=== PATIENT | female | born 1995 | race Caucasian/White ===

== ENCOUNTER 2017-04-23 10:09 | Emergency (ER) | payer MEDICAID, SELFPAY ==
[2017-04-23 10:10] VITALS: BP 130/89; PULSE 103; RESP 14; TEMP 36.8; O2SAT 100; BMI 33.6
[2017-04-23 22:19] LABS: Microscopic, Urine URINE MICROSCOPIC (MICROSCOPIC)
[2017-04-23 23:33] LABS: Appearance,Urine TURBID (Clear); Bilirubin,Urine Negative (Negative); Blood, Urine 3+ (Negative); Color,Urine AMBER (Yellow); Glucose,Urine (UA) Negative (Negative); Ketones,Urine TRACE (Negative); Leukocyte Esterase,Urine TRACE (Negative); Nitrate,Urine POSITIVE (Negative); PH,Urine 6.5 (5.0-8.5); Protein,Urine 2+ (Negative); Specific Gravity, Urine >= 1.030 (1.005-1.030)
[2017-04-23 23:41] LABS: Amorphous Sediment,Urine 4+ /lpf; RBC,Urine TNTC #/hpf (0-3)
[2017-04-24 00:06] LABS: Alanine Aminotransferase 17 U/L (12-78); Albumin/Globulin Ratio 1.2 (1.1-1.8); Alkaline Phosphatase 66 U/L (46-116); Anion Gap 9.9 mEq/L (5-15); Aspartate Amino Transferase 9 U/L (15-37); Bilirubin,Total 0.6 mg/dL (0.2-1.0); Blood Urea Nitrogen 11 mg/dL (7-18); Carbon Dioxide 30 mmol/L (21.0-32.0); Chloride 102 mmol/L (98-107); Creatinine Clearance Estimated 172 mL/min (0-300); Estimated Glomerular Filt Rate > 60 ml/min (>60); GFR (African American) > 60 ML/MIN (>60); Globulin 3.3 gm/dl (1.3-3.2); Glucose 98 mg/dL (74-106); Potassium 3.9 mmoL/L (3.5-5.1); Sodium 138 mmol/L (136-145); Total Protein,Serum 7.3 gm/dL (6.4-8.2)
[2017-04-24 00:07] LABS: HCG,Quantitative 578 mIU/mL
[2017-04-24 00:58] LABS: Basophils % 0.2 % (0.1-2.0); Eosinophils % 0.6 % (0.1-12.0); Hematocrit 39.9 % (37.0-47.0); Hemoglobin 13.4 g/dL (12.2-16.2); Mean Corpuscular HGB Conc 33.6 g/dL (31.8-35.4); Mean Corpuscular Volume 92.3 fl (81-99); Mean Platelet Volume 8.7 fl (7.4-10.4); Monocytes % 5.4 % (1.7-9.3); Neutrophils % 81.8 % (37.0-80.0); Platelet Count 270 K/mm3 (142-424); Red Blood Count 4.32 M/mm3 (4.20-5.40); Red Cell Distribution Width 12.3 % (11.5-17.5); White Blood Count 13.1 K/mm3 (4.8-10.8)
[2017-04-24 00:59] LABS: Eosinophils # 0.1 K/mm3 (0.0-0.4); Lymphocytes # 1.6 K/mm3 (0.7-4.5); Monocytes # 0.7 K/mm3 (0.1-1.0); Neutrophils # 10.7 K/mm3 (1.8-7.8)
== END 2017-04-23 10:30 | disposition home or self-care (01) ==
PROVIDERS: Emergency Provider Physician Assistant; Family Provider Family Medicine; PCP Family Medicine
DX: N39.0 Urinary tract infection, site not specified (principal)
CPT/HCPCS: 80053; 81001; 84702; 85025; 87086; 99202

== ENCOUNTER → 2017-09-13 13:23 | Outpatient (REF) | payer MEDICAID, SELFPAY ==
[2017-09-15 19:23] LABS: Neisseria gonorrhoeae, NAA Negative (Negative)
== END ==
LOC: LAB 13:23
PROVIDERS: Visit Provider Physician Assistant
DX: R10.9 Unspecified abdominal pain (principal)
CPT/HCPCS: 87086; 87210; 87491; 87591

== ENCOUNTER → 2017-09-14 15:54 | Outpatient (REF) | payer MEDICAID, SELFPAY ==
[2017-09-14 19:42] LABS: HCG,Quantitative 3 mIU/mL
== END ==
LOC: LAB 15:54
PROVIDERS: Visit Provider Physician Assistant
DX: R10.9 Unspecified abdominal pain (principal)
CPT/HCPCS: 84702

== ENCOUNTER → 2017-12-06 17:41 | Outpatient (REF) | payer MEDICAID, SELFPAY ==
[2017-12-06 20:40] LABS: HCG,Quantitative 0 mIU/mL
== END ==
LOC: LAB 17:41
PROVIDERS: Visit Provider Physician Assistant
DX: N91.2 Amenorrhea, unspecified (principal)
CPT/HCPCS: 84702

== ENCOUNTER → 2018-03-13 14:23 | Outpatient (CLI) | payer MEDICAID, SELFPAY | PROVIDERS: Visit Provider Nurse Practitioner Family | DX: R10.32 Left lower quadrant pain (principal) | CPT/HCPCS: 87086 ==

== ENCOUNTER → 2018-03-13 14:45 | Outpatient (CLI) | payer MEDICAID, SELFPAY ==
--- NOTE | 2018-03-13 14:47 | US_ITS ---
US transvaginal HISTORY: ITS.REASON: US T/V- F/U on left ovarian cyst ORDERING PHYSICIAN: Lauren Rodriguez MD PATIENT AGE: 22 years Comparison: 09/15/2017 Last menstrual period: 02/26/2018 FINDINGS: The uterus is 7.6 x 3.7 x 5.7 cm with a combined endometrial thickness of 7 mm. No uterine mass or abnormal echogenicity apparent. The left ovary is 3.5 x 2.7 cm containing small follicles. Blood flow is present. The right ovary is 3.5 x 2.6 cm cm and contains small follicles. Blood flow is present. No adnexal mass evident. Minimal amount of fluid is present in the cul-de-sac. IMPRESSION: Essentially unremarkable pelvic ultrasound Previously noted left ovarian cyst has resolved
== END ==
PROVIDERS: PCP Physician Assistant; Visit Provider Obstetrics & Gynecology
DX: N83.202 Unspecified ovarian cyst, left side (principal)
CPT/HCPCS: 76830

== ENCOUNTER → 2018-03-16 14:25 | Outpatient (CLI) | payer MEDICAID, SELFPAY ==
[2018-03-16 16:15] LABS: Thyroid Stimulating Hormone 0.96 uIU/ml (0.358-3.740)
[2018-03-19 10:34] LABS: Progesterone 0.2 ng/mL (.)
== END ==
PROVIDERS: PCP Physician Assistant; Visit Provider Obstetrics & Gynecology
DX: N97.0 Female infertility associated with anovulation (principal)
CPT/HCPCS: 36415; 84144; 84443

== ENCOUNTER → 2018-08-20 08:44 | Outpatient (CLI) | payer MEDICAID, SELFPAY ==
[2018-08-21 08:33] LABS: Progesterone 7.3 ng/mL (.)
== END ==
PROVIDERS: Visit Provider Obstetrics & Gynecology
DX: N97.0 Female infertility associated with anovulation (principal)
CPT/HCPCS: 36415; 84144

== ENCOUNTER → 2018-09-03 10:16 | Outpatient (CLI) | payer MEDICAID, SELFPAY ==
[2018-09-04 08:52] LABS: Progesterone 14.5 ng/mL (.)
== END ==
PROVIDERS: Visit Provider Obstetrics & Gynecology
DX: N97.9 Female infertility, unspecified (principal)
CPT/HCPCS: 36415; 84144

== ENCOUNTER → 2018-09-05 13:59 | Outpatient (CLI) | payer MEDICAID, SELFPAY ==
[2018-09-05 14:41] LABS: HCG,Quantitative 817 mIU/mL
== END ==
PROVIDERS: Visit Provider Physician Assistant
DX: N91.2 Amenorrhea, unspecified (principal)
CPT/HCPCS: 36415; 84702

== ENCOUNTER → 2018-09-07 08:22 | Outpatient (CLI) | payer MEDICAID, SELFPAY ==
[2018-09-07 10:37] LABS: HCG,Quantitative 395 mIU/mL
== END ==
PROVIDERS: Visit Provider Physician Assistant
DX: Z34.90 Encounter for supervision of normal pregnancy, unspecified, unspecified trimester (principal)
CPT/HCPCS: 36415; 84702

== ENCOUNTER → 2019-02-20 14:15 | Outpatient (CLI) | payer OTHER, SELFPAY ==
[2019-02-20 14:32] LABS: Basophils # 0.1 K/mm3 (0-0.2); Basophils % 0.6 % (0.1-2.0); Eosinophils # 0.1 K/mm3 (0.0-0.4); Eosinophils % 1.5 % (0.1-12.0); Hematocrit 44.9 % (37.0-47.0); Hemoglobin 14.7 g/dL (12.2-16.2); Lymphocytes # 2.5 K/mm3 (0.7-4.5); Lymphocytes % 27.5 % (10-50); Mean Corpuscular HGB Conc 32.7 g/dL (31.8-35.4); Mean Corpuscular Hemoglobin 30.6 pg (27.0-31.2); Mean Corpuscular Volume 93.6 fl (81-99); Mean Platelet Volume 9.2 fl (7.4-10.4); Monocytes # 0.5 K/mm3 (0.1-1.0); Monocytes % 5.5 % (1.7-9.3); Neutrophils # 5.8 K/mm3 (1.8-7.8); Neutrophils % 64.9 % (37.0-80.0); Platelet Count 349 K/mm3 (142-424); Red Cell Distribution Width 12.1 % (11.5-17.5)
[2019-02-20 14:50] LABS: Alanine Aminotransferase 22 U/L (12-78); Albumin Level 3.8 gm/dL (3.4-5.0); Albumin/Globulin Ratio 1.3 (1.1-1.8); Alkaline Phosphatase 71 U/L (46-116); Anion Gap 13.6 mEq/L (5-15); Aspartate Amino Transferase 10 U/L (15-37); Bilirubin,Total 0.5 mg/dL (0.2-1.0); Blood Urea Nitrogen 9 mg/dL (7-18); Calcium 8.9 mg/dL (8.5-10.1); Carbon Dioxide 25 mmol/L (21.0-32.0); Chloride 103 mmol/L (98-107); Chol/HDL Ratio 4.1 (1-3.5); Cholesterol 153 mg/dL (140-200); Creatinine,Serum 0.64 mg/dL (0.55-1.02); Estimated Glomerular Filt Rate 114 ml/min (>60); GFR (African American) 138 ML/MIN (>60); Glucose 91 mg/dL (74-106); HDL Cholesterol 37 mg/dL (29-89); LDL Cholesterol 100 mg/dL (0-130); Potassium 3.6 mmoL/L (3.5-5.1); Sodium 138 mmol/L (136-145); T4 (Thyroxine) 7.5 ug/dl (4.7-13.3); Thyroid Stimulating Hormone 1.65 uIU/ml (0.358-3.740); Total Protein,Serum 6.8 gm/dL (6.4-8.2); Triglycerides 82 mg/dL (30-200); VLDL Cholesterol 16 mg/dL (0-40)
[2019-02-22 08:28] LABS: Vitamin D 25 Hydroxy 18.9 ng/mL (30.0-100.0)
== END ==
PROVIDERS: Visit Provider Physician Assistant
DX: E66.3 Overweight (principal); E55.9 Vitamin D deficiency, unspecified
CPT/HCPCS: 80053; 80061; 82652; 84436; 84443; 85025

== ENCOUNTER → 2019-05-23 14:36 | Outpatient (CLI) | payer OTHER, SELFPAY ==
--- NOTE | 2019-05-23 14:37 | US_ITS ---
PROCEDURE: US BREAST RT COMPLETE CLINICAL INDICATION: US Right Breast- nodule and pain of breast COMPARISON: No exams were available for comparison FINDINGS: Ultrasound examination performed of the right breast. At the 10 o'clock region there is 9 x 6 mm hypoechoic nodule wider than tall with enhanced through transmission of sound. Does appear to be some low level internal echoes. Margins are slightly lobular. This may represent a complicated cyst or fibroadenoma. No other significant anomalies are evident. IMPRESSION: Hypoechoic well-circumscribed nodule at 10 o'clock region of the right breast which may represent a complicated cyst or fibroadenoma. BI-RADS category 3 probably benign. Recommend 3 month sonographic follow-up. Alternatively, fine needle aspiration could be performed under sonographic guidance if clinically desired. Follow-up is recommended. Dictated by: Billy Costa MD 06/01/2019 08:56 Electronically signed by Billy Costa MD in [place] 06/01/2019 08:56
== END ==
PROVIDERS: PCP Physician Assistant; Visit Provider Obstetrics & Gynecology
DX: N63.10 Unspecified lump in the right breast, unspecified quadrant (principal); N64.4 Mastodynia
CPT/HCPCS: 76641

== ENCOUNTER → 2020-05-12 12:25 | Outpatient (CLI) | payer OTHER, SELFPAY ==
[2020-05-12 13:58] LABS: HCG,Quantitative 4291 mIU/ml (0-5.42)
== END ==
PROVIDERS: Visit Provider Obstetrics & Gynecology
DX: Z34.90 Encounter for supervision of normal pregnancy, unspecified, unspecified trimester (principal)
CPT/HCPCS: 36415; 84702

== ENCOUNTER → 2020-05-14 08:45 | Outpatient (CLI) | payer OTHER, SELFPAY ==
[2020-05-14 10:05] LABS: HCG,Quantitative 6963 mIU/ml (0-5.42)
== END ==
PROVIDERS: Visit Provider Obstetrics & Gynecology
DX: Z34.90 Encounter for supervision of normal pregnancy, unspecified, unspecified trimester (principal)
CPT/HCPCS: 36415; 84702

== ENCOUNTER 2020-05-15 20:18 | Emergency (ER) | payer OTHER, SELFPAY ==
[2020-05-15 20:20] VITALS: BP 168/98; PULSE 102; RESP 14; TEMP 37.1; O2SAT 98; BMI 30.9
[2020-05-15 20:32] VITALS: BMI 30.9
[2020-05-15 20:43] LABS: Microscopic, Urine URINE MICROSCOPIC (MICROSCOPIC)
--- NOTE | 2020-05-15 20:44 | US_ITS ---
PROCEDURE: US OB TRANSVAGINAL Referring Doctor: Jose C Cole Patient Age:24Y CLINICAL INDICATION: spotting, back pain positive test COMPARISON: US OBTV US OB transvaginal from 09/15/2017 FINDINGS: Today's ultrasound shows a relatively thickened endometrial stripe measuring up to 14.2 mm suggesting decidual reaction, but no intrauterine gestational sac identified.. No fluid within the endometrial cavity either.. No free fluid pelvis. The uterus slightly generous size measuring 9.6 cm length x4.8 cm AP x 6.2 2 cm wide. There is no fluid at cul-de-sac Patient will require serum quantitative beta HCG with serial beta hCGs to better determine the status of this . Ectopic cannot be excluded and is significant consideration at this point Right ovary measures 2.5 x 2.2 x 1.8 cm. There are few tiny follicles none measuring over 5 mm Left ovary is larger than right: Left ovary measuring 4.5 x2.4 x 2.3 cm. There is some scattered small follicular appearing cysts. No dominant cyst but however I would note that 1 of the cysts measuring up to 7 mm a slightly thick wall with some minimal relative flow at its margin-nonspecific and unimpressive at this point and will require follow-up. No highly suspect features for ectopic nor corpus luteum. IMPRESSION: No intrauterine gestation is identified. Endometrial thickening suggesting decidual reaction but no intrauterine gestational sac evident Left ovary is larger than right but contains no clearly dominant cystic area. Only note small 7 mm cyst with some questionable wall thickening and upper normal flow at its margin-this will require follow-up to exclude early ectopic Ectopic is a significant concern-with positive test/beta HCG 9198, and no no intrauterine gestation.. .. Requires close follow-up with serum coronary date of beta HCG in 2-3 days, and repeat transvaginal scanning if HCG continues to rise Dictated by: Jakob Cmaacho MD 05/17/2020 09:58 Jakob Camacho MD in [facility] 05/17/2020 09:58
[2020-05-15 20:45] LABS: Urine Pregnancy, HCG Qual. Positive (Negative)
[2020-05-15 20:55] LABS: Appearance,Urine TURBID (Clear); Blood, Urine 3+ (Negative); Color,Urine RED (Yellow); Glucose,Urine (UA) Negative (Negative); Ketones,Urine Negative (Negative); Leukocyte Esterase,Urine Negative (Negative); Nitrate,Urine Negative (Negative); Protein,Urine 1+ (Negative); Specific Gravity, Urine >= 1.030 (1.005-1.030); Urobilinogen,Urine 0.2 EU/dl (0.2)
[2020-05-15 21:01] LABS: Bilirubin,Urine Negative (Negative)
[2020-05-15 21:02] LABS: Amorphous Sediment,Urine Trace /lpf; Bacteria,Urine Trace /lpf; RBC,Urine TNTC #/hpf (0-3)
[2020-05-15 21:36] LABS: Basophils # 0.1 K/mm3 (0-0.2); Basophils % 0.4 % (0.1-2.0); Eosinophils # 0.1 K/mm3 (0.0-0.4); Hematocrit 42.5 % (37.0-47.0); Hemoglobin 14.7 g/dL (12.2-16.2); Lymphocytes # 2.8 K/mm3 (0.7-4.5); Lymphocytes % 21.6 % (10-50); Mean Corpuscular HGB Conc 34.7 g/dL (31.8-35.4); Mean Corpuscular Hemoglobin 30.5 pg (27.0-31.2); Monocytes # 0.6 K/mm3 (0.1-1.0); Monocytes % 4.3 % (1.7-9.3); Neutrophils # 9.3 K/mm3 (1.8-7.8); Neutrophils % 72.6 % (37.0-80.0); Platelet Count 329 K/mm3 (142-424); Red Blood Count 4.83 M/mm3 (4.20-5.40); Red Cell Distribution Width 12.5 % (11.5-17.5); White Blood Count 12.8 K/mm3 (4.8-10.8)
[2020-05-15 21:43] LABS: Alanine Aminotransferase 21 U/L (12-78); Albumin Level 4.4 g/dl (3.5-5.0); Alkaline Phosphatase 59 U/L (38-126); Anion Gap 12.8 mEq/L (5-15); Aspartate Amino Transferase 22 U/L (14-36); Bilirubin,Direct 0.2 mg/dl (0.0-0.4); Bilirubin,Total 0.2 mg/dl (0.2-1.3); Blood Urea Nitrogen 10 mg/dl (7-17); Calcium 9.7 mg/dl (8.4-10.2); Carbon Dioxide 26 mmol/L (22.0-30.0); Chloride 103 mmol/L (98-107); Creatinine Clearance Estimated 185 mL/min (50-200); Estimated Glomerular Filt Rate 122 ml/min (>60); GFR (African American) 147 ML/MIN (>60); Glucose 104 mg/dl (74-100); Potassium 3.8 mmoL/L (3.5-5.1); Sodium 138 mmol/L (136-145); Total Protein,Serum 7.5 g/dl (6.3-8.2)
--- NOTE | 2020-05-15 22:04 | HMH.EDPREG ---
ED Disposition Clinical Impression: Qualifiers: Weeks of gestation: less than 8 weeks Qualified Code(s): Z3A.01 - Less than 8 weeks gestation of Disposition: Home, Self-Care Condition on Discharge: Good Instructions: DI for Vaginal Bleeding During Additional Instructions: will obtain quant beta on monday and call dr mcmanus and precautions given to pt about returning to ed if increased pain or bleeding Referrals: Nereida Browning PA [Primary Care Provider] - - Critical Care Critical Care Time: No Attestation: On 05/15/20, the high probability of a clinically significant, sudden or life threatening deterioration of the following system(s) required my full and direct attention, intervention and personal management. The time I documented below is in addition to time spent performing reported procedures but includes the following listed in this critical care notation. Medical Decision Making - Medical Records Medical records reviewed: Yes: I reviewed the patient's medical records. - Walker Inquiry Pt receiving controlled substance: No Vital Signs: 05/15/20 20:20 Temperature 98.7 F Temperature Source Oral Pulse Rate [Right] 102 H Respiratory Rate 14 Blood Pressure [Right Arm] 168/98 H Blood Pressure Mean [Right Arm] 121 02 Sat by Pulse Oximetry 98 - Lab Data Lab results reviewed: Yes: I reviewed the patient's lab results. Lab Results 05/15/20 20:32: Urine Color Red, Urine Appearance Turbid, Urine pH 6.0, Ur Specific [place] >= 1.030, Urine Protein 1+, Urine Glucose (UA) Negative, Urine Ketones Negative, Urine Blood 3+, Urine Nitrate Negative, Urine Bilirubin Negative, Urine Urobilinogen 0.2, Ur Leukocyte Esterase Negative, Urine RBC Tntc, Ur Squamous Epith Cells 10-20, Amorphous Sediment Trace, Urine Bacteria Trace 05/15/20 20:32: Urine HCG, Qual Positive 05/15/20 21:25: WBC 12.8 H, RBC 4.83, Hgb 14.7, Hct 42.5, MCV 88.0, MCH 30.5, MCHC 34.7, RDW 12.5, Plt Count 329, MPV 8.0, Neut % (Auto) 72.6, Lymph % (Auto) 21.6, [place] % (Auto) 4.3, Eos % (Auto) 1.0, Baso % (Auto) 0.4, Neut # (Auto) 9.3 H, Lymph # (Auto) 2.8, [place] # (Auto) 0.6, Eos # (Auto) 0.1, Baso # (Auto) 0.1 05/15/20 21:25: Sodium 138, Potassium 3.8, Chloride 103, Carbon Dioxide 26, Anion Gap 12.8, BUN 10, Creatinine 0.60, Estimated Creat Clear 185, Estimated GFR 122, Est GFR ( Amer) 147, Glucose 104 H, Calcium 9.7, Total Bilirubin 0.2, Direct Bilirubin 0.2, Conjugated Bilirubin 0.0, Indirect Bilirubin 0.0, Unconjugated Bilirubin 0.0, AST 22, ALT 21, Alkaline Phosphatase 59, Total Protein 7.5, Albumin 4.4 05/15/20 21:25: Blood Type A Positive 05/15/20 21:25: HCG, Quant 9198 H Result diagrams: 05/15/20 21:25 05/15/20 21:25 Orders (Tests/Meds): ED MEDICATIONS Generic Name Dose Route Start Last Admin Trade Name Torres PRN Reason Stop Dose Admin Sodium Chloride 1,000 mls @ 999 mls/hr 05/15/20 21:45 05/15/20 21:33 Sod Chlor 0.9% 1000ml Bag IV 05/15/20 22:45 999 mls/hr .Q1H1M MIKA Administration ORDERS Category Date Time Status US OB transvaginal Stat Ultrasound 05/15/20 20:44 Ordered - US Data US Images: Pelvis Findings Narrative: no iup seen - Physician Consults Physician Consulted: marietta Time: 22:43 Reason -: Pt condition Medical Decision Narrative: early with pain and bleeding with increased beta but neg pelvic u/s - ectopic possible and will follow beta and ask pt to return if increased pain/bleeding HPI - General Chief complaint: Vaginal Bleeding Stated complaint: sharp pains, bleeding, Time Seen by Provider: 05/15/20 20:40 Mode of Arrival: Ambulatory Source of Information: Patient, Medical Record Limitations: No Limitations Description of Symptoms (Recalled from ER Triage Doc. by RN): pt c/o lower sharp ABd pain that started this AM. pt having some brown discharge when wiping x 2 days. this evening discharge color is now bright red. -
[2020-05-15 22:05] LABS: HCG,Quantitative 9198 mIU/ml (0-5.42)
--- NOTE | 2020-05-15 22:34 | PC.NURSE ---
SPEAKING WITH DR SOLITARIO. DR SOLITARIO SPEAKS WITH DANNIE PHAN
[2020-05-15 22:48] VITALS: BP 158/72; PULSE 66; RESP 15; TEMP 36.1; O2SAT 98
== END 2020-05-15 22:59 | disposition home or self-care (01) ==
PROVIDERS: Emergency Provider Emergency Medicine; PCP Physician Assistant
DX: O20.9 Hemorrhage in early pregnancy, unspecified (principal); Z3A.01 Less than 8 weeks gestation of pregnancy; F41.8 Other specified anxiety disorders
CPT/HCPCS: 76817; 80048; 80076; 81001; 81025; 84702; 85025; 86900; 86901; 96365; 99283

== ENCOUNTER → 2020-05-18 09:42 | Outpatient (CLI) | payer OTHER, SELFPAY ==
[2020-05-18 10:41] LABS: HCG,Quantitative 11918 mIU/ml (0-5.42)
--- NOTE | 2020-05-18 12:17 | US_ITS ---
PROCEDURE: US OB <= 14 WEEKS FETUS CLINICAL INDICATION: US OB Dates Pelvic pain with bleeding COMPARISON: US US OB TRANSVAGINAL from 05/15/2020 FINDINGS: An intrauterine gestational sac is not identified. The endometrium is thickened at 18 mm with a minimal amount of fluid within the endometrial cavity. In the left adnexa there is a complex area of echogenicity which appears to represent a gestational sac with a pole. Heart flicker is demonstrated. Ring of fire sign noted around this region. Trace amount of fluid present around the uterus. IMPRESSION: Suspected ectopic in the left adnexa. No intrauterine gestational sac apparent in the left adnexa Dictated by: Billy Costa MD 05/18/2020 13:02 Billy Costa MD in [place] 05/18/2020 13:02
== END ==
PROVIDERS: PCP Nurse Practitioner Family; Visit Provider Obstetrics & Gynecology
DX: O26.841 Uterine size-date discrepancy, first trimester (principal)
CPT/HCPCS: 36415; 76801; 84702

== ENCOUNTER 2020-05-18 13:48 | Day surgery (SDC) | payer OTHER, SELFPAY ==
[2020-05-18] VITALS (12 sets, daily range): BP systolic 101–136; BP diastolic 46–92; PULSE 69–91; RESP 12–18; TEMP 36.6–43; O2SAT 95–98; BMI 71.8
[2020-05-18 14:59] LABS: Coronavirus 19 IgG Antibody Negative (Negative); Coronavirus 19 IgM Antibody Negative (Negative)
--- NOTE | 2020-05-18 16:18 | P.PN_ITS ---
[facility] Anesthesia Checklist - Structural Data Admitted From: Home Planned Operative Procedure/s: dx lap Consent for Planned Operative Procedure(s) Verified: Yes - Airway Assessment C-Spine Mobility Assessed: Yes TMJ Mobility Assessed: Yes Dentition: Good Dentition - Neurological Assessment Level of Consciousness: Awake, Alert, Appropriate - Anesthesia Plan Anesthesia Risk discussed: Yes Anesthesia Plan: Verified ASA Class: II Anesthesia Type: General [facility] History I have reviewed the patient's past medical history: Yes Medical History: Reports:: Anxiety, Depression Denies:: Cancer, Diabetes Mellitus Type 1, Diabetes Mellitus Type 2, Internal Pacemaker, MRSA *Have you ever received a pneumonia vaccine?: No *Have you received a flu vaccine this season?: No Anesthesia experience/problems:: none Other Surgeries: Yes: Cholecystectomy. No: Pacemaker Amputation: No Fractures: No - *Social History Last grade of school completed: High school graduate Smoking Status: Former smoker Tobacco Type: cigarettes # Packs/Day (cigarettes): 1 Alcohol Intake: current Alcohol Intake Frequency:: holidays/special occasions only Substance Use Type: denies use *Occupational Status:: employed Housing: house Household Members: significant other *Travel in the last 8 weeks: None - Psychiatric History Pschychiatric History:: Reports:: Anxiety, Depression Family Hx:: Cancer, Hypertension, Thyroid Disorder
--- NOTE | 2020-05-18 16:18 | HMH.ANESI ---
[facility] Anesthesia Record Part I Intake, IV Amount: 1,500 Estimated blood loss (mL): 200 Urine output (mL): 200 Blood Pressure: 101/78 SaO2: 96 Pulse Rate: 86 Respiratory Rate: 12 Temperature: 98.6 F Patient is:: Awake, Stable Stable to PACU at:: 16:10
--- NOTE | 2020-05-18 16:22 | P.OP_ITS ---
Date of procedure: 05/18/20 Pre-op Diagnosis:: left ectopic Post-op Diagnosis:: left ectopic with hemoperitoneum Procedure performed:: diagnostic laparoscopy, left salpingectomy Surgeon:: Lauren Rodriguez MD ADVERTISING ASSISTANT:: Keanu Myles Anesthesia: GETA Estimated blood loss (mL): 200 Operative findings:: left ectopic hemoperitoneum approximately 200cc grossly normal right fallopian tube grossly normal ovaries bilaterally grossly normal uterus Operative note:: The patient was taken to the operating room and general anesthesia was administered. She was prepped/draped in lithotomy position. A uterine manipulator was placed without difficulty. Gloves were changed and attention was turned to the abdomen. A 5mm skin incision was made in the umbilical fold and the verees needle was inserted through the peritoneum and into the abdominal cavity in standard fashion. The abdomen was insufflated with CO2 gas. A 5mm non-bladed trocar was inserted directly into the abdominal cavity and appropriate placement was confirmed with the laparoscope. No intra-abdominal injuries occurred during entry into the abdominal cavity, as confirmed visually with the laparoscope. The patient was placed in trendelenburg and a 11mm skin incision was made 2cm above the pubic symphysis. A 11mm non-bladed trocar was inserted under direct visualization, without complication. The uterus was elevated out of the pelvis in order to better visualize the anatomy. A survey of the pelvis and abdomen revealed a large amount of hemoperitoneum in the pelvis and a grossly enlarged distal segment of the left fallopian tube, which was actively bleeding. A 5mm skin incision was made in the left and right lower quadrants and 5mm trocars were inserted under direct visualization, without complication. The hemoperitoneum was evacuated with the suction-desk clerks supervisor and the uterus was elevated out of the pelvis to further assess the anatomy. The right fallopian tube and ovary appeared normal, and the left ovary appeared normal. The harmonic scalpel was used to excise the ectopic and it was placed into an endo-bag. The endo-bag was removed through the 11 trocar and the specimen was sent for pathology. The pelvis and abdomen were copiously irrigated and cleared of clot. Isi was placed over the surgical site on the fallopian tube for additional hemostasis. The abdomen was then evacuated of gas and all trocars removed. The fascia of suprapubic incision was closed with 0- vicryl. Skin incisions were closed with 4-0 monocryl and dermabond. The uterine manipulator was removed. All sponge/lap/needle/instrument counts correct for both abdominal and vaginal procedures. Total EBL: 200cc. The patient was taken out of lithotomy position, extubated and taken to the PACU in stable condition. Condition: stable Disposition: PACU Complications:: none
--- NOTE | 2020-05-18 17:00 | PC.NURSE ---
1648-detailed report given at bedside to KULWANT Issa 1649-pt transported to post op via stretcher w/bhupinder rails up per MaeganRN, pt stable upon discharge from pacu, family at bedside
--- NOTE | 2020-05-19 14:25 | HMH.ANESII ---
[facility] Anesthesia Record Part II Discharge Time: 16:49 Destination: Surgical Day Care (OP Surgery) PACU nurse assessment reviewed?: Yes Patient Condition:: Good Anesthesia Complications:: None Swallowing reflex intact?: Yes Cyanosis?: No Blood Pressure: 123/91 Pulse Rate: 74 Temperature: 98.4 F Mental Status: Alert & Oriented Pain level:: 5 Nausea and/or vomitting:: None Intake, IV Amount: 0
[2020-05-19 14:26] VITALS: BP 123/91; PULSE 74; TEMP 36.9
== END 2020-05-18 17:22 | disposition home or self-care (01) ==
LOC: OR 13:48
PROVIDERS: PCP Nurse Practitioner Family; Visit Provider Obstetrics & Gynecology
PROC: (CPT 49320; principal; 2020-05-18 14:00)
DX: O00.90 Unspecified ectopic pregnancy without intrauterine pregnancy (principal); K66.1 Hemoperitoneum; F41.9 Anxiety disorder, unspecified; F32.9 Major depressive disorder, single episode, unspecified; Z79.82 Long term (current) use of aspirin
CPT/HCPCS: 59151; 36415; 86328; 86850; 96374; J0330; J2405; J2710

== ENCOUNTER 2020-07-08 18:35 | Emergency (ER) | payer OTHER, SELFPAY ==
[2020-07-08 18:48] VITALS: BP 144/90; PULSE 98; RESP 18; TEMP 36.7; O2SAT 99; BMI 36.0
--- NOTE | 2020-07-08 19:22 | HMH.EDUTC ---
[facility] Disposition Clinical Impression: Migraine Qualifiers: Migraine type: unspecified Status migrainosus presence: without status migrainosus Intractability: not intractable Qualified Code(s): G43.909 - Migraine, unspecified, not intractable, without status migrainosus Disposition: Home, Self-Care Condition on Discharge: Good Instructions: Migraine -- Adult Additional Instructions: GO home and lay down and sleep off remainder of migraine headache Return if headache returns Follow up with your Family Doctor for further evaluation and treatment of migraine headaches Straight to ER for worse headache of your life, changes in vision or any life threatening symptoms Referrals: Nereida Browning PA [Primary Care Provider] - As needed Forms: Work/School Release Time of Disposition: 19:47 Medical Decision Making - Walker Inquiry Pt receiving controlled substance: No Walker was queried for this patient: No Vital Signs: 07/08/20 18:48 Temperature 98.1 F Temperature Source Oral Pulse Rate [Right] 98 H Respiratory Rate 18 Blood Pressure [Right Arm] 144/90 H Blood Pressure Mean [Right Arm] 108 Blood Pressure Source [Right Arm] Automatic Cuff Blood Pressure Position [Right Arm] Sitting 02 Sat by Pulse Oximetry 99 Oxygen Delivery Method Room Air - Lab Data Lab results reviewed: Yes: I reviewed the patient's lab results. Orders (Tests/Meds): ED MEDICATIONS Discontinued Medications Generic Name Dose Route Start Last Admin Trade Name Torres PRN Reason Stop Dose Admin Diphenhydramine HCl 25 mg 07/08/20 19:23 07/08/20 19:27 Diphenhydramine 50mg/Ml Vial IM 07/08/20 19:24 25 mg ONCE ONE Administration Ketorolac Tromethamine 60 mg 07/08/20 19:23 07/08/20 19:27 Ketorolac 60mg/2ml Vial IM 07/08/20 19:24 60 mg ONCE ONE Administration Ondansetron HCl 4 mg 07/08/20 19:23 07/08/20 19:27 Ondansetron 4mg Odt SL 07/08/20 19:24 4 mg ONCE ONE Administration Medical Decision Narrative: Patient states that headache is much better and almost gone after medication patient dc'd home with family [facility] HPI - General Stated complaint: Headache,nausea Time Seen by Provider: 07/08/20 19:22 Mode of Arrival: Ambulatory Source of Information: Patient Limitations: No Limitations Description of Symptoms (Recalled from Triage Doc. by RN): pt is having a migraine with light and sound sensititivity, pt feels weak and is extremely nauseated. HEENT Symptoms (Recalled from RN notes): Yes (migraine with light and sound sensitivity) Resp Symptoms (Recalled from RN notes): No Skin Symptoms (Recalled from RN notes): No MS Symptoms (Recalled from RN notes): No Functional Status (Recalled from RN notes): na - History of Present Illness Provider Complaint: Patient states that over the last few months she has been having some migraine headaches State that earlier today she started having migraine headache and felt it coming on States that she has been feeling sick at her stomach, light makes her head hurt worse and feeling nausea due to the pain State that this evening it wasnt getting better so she come in to get some medication to help with it Denies vision problems or changes and denies worse headache of her life - Related Data Previous Rx's Medication Instructions Recorded naproxen 500 mg tablet 500 mg PO BID #60 tab 05/22/20 Allergies Allergy/AdvReac Type Severity Reaction Status Date / Time No Known Allergies Allergy Verified 07/08/20 18:40 - Worker's Comp Is this a Worker's Comp case?: No [facility] History - Hepatitis A Screen Drug use history?: No High risk sexual behaviors?: No History of sexually transmitted infection?: No Currently employed?: No Childcare worker?: No Do you have indoor plumbing?: Yes Do you have electricity?: Yes Attestation statement:: This patient has been screened for Hepatitis A risk factors. I have reviewed the patient's past medical history: Yes Medic
[2020-07-08 19:52] VITALS: BP 126/84; PULSE 82; RESP 16; TEMP 36.6
[2020-07-09 19:19] LABS: UTC Pregnancy Test, Urine Negative (Negative)
== END 2020-07-08 19:54 | disposition home or self-care (01) ==
PROVIDERS: Emergency Provider Nurse Practitioner; PCP Physician Assistant
DX: G43.109 Migraine with aura, not intractable, without status migrainosus (principal); F41.8 Other specified anxiety disorders; F17.210 Nicotine dependence, cigarettes, uncomplicated
CPT/HCPCS: 81025; 96372; 99202; G0463

== ENCOUNTER → 2020-11-16 09:12 | Outpatient (CLI) | payer OTHER, SELFPAY ==
[2020-11-16 14:57] LABS: HCG,Quantitative 736 mIU/ml (0-5.42)
[2020-11-17 10:23] LABS: Progesterone 4.3 ng/mL (.)
== END ==
PROVIDERS: Visit Provider Obstetrics & Gynecology
DX: Z34.90 Encounter for supervision of normal pregnancy, unspecified, unspecified trimester (principal)
CPT/HCPCS: 84144; 84702

== ENCOUNTER → 2020-11-18 08:51 | Outpatient (CLI) | payer OTHER, SELFPAY ==
[2020-11-18 10:29] LABS: HCG,Quantitative 1309 mIU/ml (0-5.42)
== END ==
PROVIDERS: Visit Provider Obstetrics & Gynecology
DX: Z34.90 Encounter for supervision of normal pregnancy, unspecified, unspecified trimester (principal)
CPT/HCPCS: 36415; 84702

== ENCOUNTER 2020-11-20 05:41 | Emergency (ER) | payer OTHER, SELFPAY ==
[2020-11-20] VITALS (9 sets, daily range): BP systolic 109–129; BP diastolic 65–81; PULSE 58–75; RESP 16–23; TEMP 36.7; O2SAT 97–100; BMI 29.9
--- NOTE | 2020-11-20 06:10 | PC.NURSE ---
Called [facility] letting them know Dr. Pozo has ordered a transvaginal u/s
--- NOTE | 2020-11-20 06:10 | US_ITS ---
PROCEDURE: US OB TRANSVAGINAL CLINICAL INDICATION: pelvic pain, , r/o ectopic COMPARISON: US US OB <= 14 WEEKS FETUS from 05/18/2020 FINDINGS: No intrauterine gestational sac is evident. The endometrium is 14 mm. There is possible small fibroid in the posterior aspect of the fundus at 1 cm. Left ovary is 4 x 2 cm with small cyst at 1 cm. The right ovary is 4 x 2 cm containing small follicles. There is a small exophytic cystic area along the right ovary at 14 mm. This is contiguous with the right ovary. No cul-de-sac fluid evident. IMPRESSION: No intrauterine gestation is apparent. The endometrium is slightly thickened at 14 mm. There are small bilateral ovarian cyst. Small right ovarian cyst has an exophytic appearance. One cannot exclude an ectopic with a positive test and empty uterus. Therefore, correlation with clinical parameters are needed. Dictated by: Billy Costa MD 11/20/2020 10:32 Billy Costa MD in [place] 11/20/2020 10:32
--- NOTE | 2020-11-20 06:11 | HMH.EDGENADL ---
ED Disposition Condition on Discharge: Fair - Critical Care Critical Care Time: No <Sandor Pozo - Last Filed: 11/20/20 08:18> Condition on Discharge: Fair - Critical Care Critical Care Time: No <Pennie Nair - Last Filed: 11/20/20 10:52> Clinical Impression: Pelvic pain, Vaginal bleeding Qualifiers: Weeks of gestation: less than 8 weeks Qualified Code(s): Z3A.01 - Less than 8 weeks gestation of Ectopic without intrauterine Qualifiers: Location of ectopic : tubal Laterality: right Qualified Code(s): O00.101 - Right tubal without intrauterine Disposition: Still a Patient Instructions: DI for Acute Abdominal Pain Referrals: Nereida Browning PA [Primary Care Provider] - Lauren Rodriguez MD [Staff Physician] - Attestation: On 11/20/20, the high probability of a clinically significant, sudden or life threatening deterioration of the following system(s) required my full and direct attention, intervention and personal management. The time I documented below is in addition to time spent performing reported procedures but includes the following listed in this critical care notation. Medical Decision Making - Medical Records Medical records reviewed: Yes: I reviewed the patient's medical records. MR Comment: Reviewed operative report from ectopic 05/18/2020. Reviewed quantitative beta-hCG results: 11/16/2020 - 736, 11/18/2020 - 1309. Reviewed blood type, A positive. - Walker Ornelas Pt receiving controlled substance: No - Lab Data Result diagrams: 11/20/20 06:16 - US Data US Images: Pelvis - Physician Consults Physician Consulted: Michael Time: 07:45 Reason -: Obstetrical Eval/Care Comment/Response: Discussed findings. She will come in to the emergency department to see the patient next. <NahomySandor hutchinson - Last Filed: 11/20/20 08:18> - Walker Ornelas Pt receiving controlled substance: No - Lab Data Result diagrams: 11/20/20 06:16 11/20/20 06:16 - Physician Consults Time: 10:47 Reason -: Obstetrical Eval/Care Comment/Response: Dr. Rodriguez came and saw the patient. She evaluated the patient and had discussions with the patient. It appears that the patient will receive methotrexate in the emergency department due to the high likelihood of this being an ectopic . The patient will then be discharged and will follow up with Dr. Rodriguez in the office as an outpatient. <Pennie Nair - Last Filed: 11/20/20 10:52> Vital Signs: 11/20/20 05:43 11/20/20 08:07 Temperature 98.0 F Temperature Source Oral Pulse Rate 66 Pulse Rate [Right] 75 Respiratory Rate 23 16 Blood Pressure 111/75 Blood Pressure [Right Arm] 113/65 Blood Pressure Mean [Right Arm] 81 Blood Pressure Source [Right Arm] Automatic Cuff Blood Pressure Position Sitting 02 Sat by Pulse Oximetry 98 99 Oxygen Delivery Method Room Air Room Air - Lab Data Lab Results 11/20/20 06:16: WBC 9.3, RBC 4.53, Hgb 13.6, Hct 39.4, MCV 86.9, MCH 29.9, MCHC 34.4, RDW 12.8, Plt Count 322, MPV 7.6, Neut % (Auto) 56.5, Lymph % (Auto) 37.0, [place] % (Auto) 4.3, Eos % (Auto) 1.5, Baso % (Auto) 0.8, Neut # (Auto) 5.2, Lymph # (Auto) 3.4, [place] # (Auto) 0.4, Eos # (Auto) 0.1, Baso # (Auto) 0.1 11/20/20 06:16: HCG, Quant 2599 H 11/20/20 06:16: Sodium 138, Potassium 3.7, Chloride 105, Carbon Dioxide 24, Anion Gap 12.7, BUN 12, Creatinine 0.70, Estimated Creat Clear 157, Estimated GFR 101, Est GFR ( Amer) 122, Glucose 112 H, Calcium 8.8, Total Bilirubin 0.4, AST 23, ALT 16, Alkaline Phosphatase 58, Total Protein 7.0, Albumin 4.2, Globulin 2.8, Albumin/Globulin Ratio 1.5 - US Data Findings Narrative: As per [facility] procedure, ultrasound report received from computer repair technician: Empty uterus, no intrauterine identified. Small cystic structure, 1 cm, medial to right ovary. (Sandor Pozo) Medical Decision Narrative: Concern for
--- NOTE | 2020-11-20 06:21 | PC.NURSE ---
pt changed into gown
--- NOTE | 2020-11-20 06:22 | PC.NURSE ---
pt now reports that she had small amount of vaginal blood while wiping
[2020-11-20 06:25] LABS: Basophils # 0.1 K/mm3 (0-0.2); Basophils % 0.8 % (0.1-2.0); Eosinophils # 0.1 K/mm3 (0.0-0.4); Eosinophils % 1.5 % (0.1-12.0); Hematocrit 39.4 % (37.0-47.0); Hemoglobin 13.6 g/dL (12.2-16.2); Lymphocytes # 3.4 K/mm3 (0.7-4.5); Mean Corpuscular HGB Conc 34.4 g/dL (31.8-35.4); Mean Corpuscular Hemoglobin 29.9 pg (27.0-31.2); Mean Corpuscular Volume 86.9 fl (81-99); Mean Platelet Volume 7.6 fl (7.4-10.4); Monocytes # 0.4 K/mm3 (0.1-1.0); Monocytes % 4.3 % (1.7-9.3); Neutrophils # 5.2 K/mm3 (1.8-7.8); Neutrophils % 56.5 % (37.0-80.0); Platelet Count 322 K/mm3 (142-424); Red Blood Count 4.53 M/mm3 (4.20-5.40); Red Cell Distribution Width 12.8 % (11.5-17.5); White Blood Count 9.3 K/mm3 (4.8-10.8)
[2020-11-20 06:49] LABS: HCG,Quantitative 2599 mIU/ml (0-5.42)
--- NOTE | 2020-11-20 07:39 | PC.NURSE ---
Dr Pozo spoke with Dr Rodriguez, she is coming in to see pt.
--- NOTE | 2020-11-20 07:39 | PC.NURSE ---
Dr Michael peralta
--- NOTE | 2020-11-20 09:03 | PC.NURSE ---
jethro oakes called dr. ortega office to check on status of her seeing pt. office staff states she is in with a pt and then will be over to see pt in ER
--- NOTE | 2020-11-20 09:23 | PC.NURSE ---
per Dr Mai office staff she is down in radiology viewing pts images at this time
--- NOTE | 2020-11-20 09:26 | PC.NURSE ---
Dr. Rodriguez at BS
--- NOTE | 2020-11-20 09:27 | PC.NURSE ---
notified lab of add of cmp order
[2020-11-20 10:34] LABS: Chloride 105 mmol/L (98-107); Potassium 3.7 mmoL/L (3.5-5.1); Sodium 138 mmol/L (136-145)
[2020-11-20 10:37] LABS: Alanine Aminotransferase 16 U/L (12-78); Albumin Level 4.2 g/dl (3.5-5.0); Albumin/Globulin Ratio 1.5 (1.1-1.8); Alkaline Phosphatase 58 U/L (38-126); Anion Gap 12.7 mEq/L (5-15); Aspartate Amino Transferase 23 U/L (14-36); Bilirubin,Total 0.4 mg/dl (0.2-1.3); Blood Urea Nitrogen 12 mg/dl (7-17); Calcium 8.8 mg/dl (8.4-10.2); Carbon Dioxide 24 mmol/L (22.0-30.0); Creatinine Clearance Estimated 157 mL/min (50-200); Estimated Glomerular Filt Rate 101 ml/min (>60); GFR (African American) 122 ML/MIN (>60); Globulin 2.8 g/dL (1.3-3.2); Glucose 112 mg/dl (74-100)
--- NOTE | 2020-11-20 10:51 | PC.NURSE ---
Dr. Rodriguez has spoken with about treatment options and POC, per Dr. Rodriguez pt has been educated about risks of treatment options and symptoms to watch for and when to return to her office or ER. Dr. Rodriguez is wanting pt to get IM injection of Methotrexate, contacted pharmacy, spoke with Bert. Bert states we do have methotrexate in house. correspondence section supervisor has spoken with Dr. Rodriguez to notify her that we do have medication in house. Dr. Rodriguez asked that staff speak with pt to confirm that is the treatment route she has decided on. Entered room and spoke with pt, pt states that she does want to get the injection of Methotrexate. Pt states that she is understanding that she still may have to have a surgery even after the medication. Pt verbalizes to me she is aware of the risks of injection as explained to her by Dr. Rodriguez. States that she is able to easily contact Dr. Rodriguez for information or consult, also educated pt to return to ER for concerns or if unable to contact Dr. Rodriguez. Pt will have labs drawn on Monday of next week and will follow up in office with Dr. Rodriguez after labs drawn appt will be given to pt per office staff- this is per Dr. Rodriguezs instructions.
== END 2020-11-20 13:19 | disposition home or self-care (01) ==
PROVIDERS: Emergency Medicine; Emergency Provider Emergency Medicine; PCP Physician Assistant
DX: O00.90 Unspecified ectopic pregnancy without intrauterine pregnancy (principal); N96 Recurrent pregnancy loss; F17.210 Nicotine dependence, cigarettes, uncomplicated; F41.8 Other specified anxiety disorders
CPT/HCPCS: 76817; 80053; 84702; 85025; 96372; 99283; J9250

== ENCOUNTER → 2020-11-23 09:07 | Outpatient (CLI) | payer OTHER, SELFPAY ==
[2020-11-23 09:55] LABS: HCG,Quantitative 4511 mIU/ml (0-5.42)
== END ==
PROVIDERS: Visit Provider Obstetrics & Gynecology
DX: O00.90 Unspecified ectopic pregnancy without intrauterine pregnancy (principal)
CPT/HCPCS: 36415; 84702

== ENCOUNTER 2020-11-23 21:40 | Observation (INO) | payer OTHER, SELFPAY ==
[2020-11-23 22:25] VITALS: BP 146/94; PULSE 76; RESP 18; TEMP 36.8; O2SAT 100; BMI 33.6
--- NOTE | 2020-11-23 22:25 | PC.NURSE ---
patient to bathroom for urine sample at this time
--- NOTE | 2020-11-23 22:35 | PC.NURSE ---
Report handed off to Cam Russo RN and Sanjeev Nguyen RN at this time
--- NOTE | 2020-11-23 22:39 | US_ITS ---
PROCEDURE: US TRANSVAGINAL CLINICAL INDICATION: ectopic , rule out rupture COMPARISON: No exams were available for comparison FINDINGS: UTERUS: 9cm x 5cmx 5cm with a combined endometrial thickness of 17.9mm LEFT OVARY: [id number] with a volume of 11ml. RIGHT OVARY: [id number] with a volume of 9.7ml. Endometrium is thickened with some heterogeneous echogenicity. The left ovary has an unremarkable appearance. Along the medial aspect of the right ovary there is a heterogeneous area of echogenicity containing a small cystic area which could represent an ectopic .. This region measures 3 x 2 cm with a cystic component measuring 1 cm. The cystic component is slightly smaller. The heterogeneous/more solid area is better demonstrated on today's exam. There is a small amount of heterogeneous fluid in the cul-de-sac which could represent some blood. IMPRESSION: No intrauterine gestation apparent. The endometrium is thickened and has a heterogeneous echotexture. Complex area of echogenicity along the medial aspect of the right ovary which could represent an ectopic better demonstrated on today's exam probably not significantly changed. Small amount of complex fluid in the cul-de-sac which could represent blood. Dictated by: Billy Costa MD 11/24/2020 07:31 Billy Costa MD in [place] 11/24/2020 07:31
--- NOTE | 2020-11-23 22:40 | PC.NURSE ---
US paged at this time
[2020-11-23 22:56] LABS: Coronavirus 19, PCR Not Detected (NotDetected); Influenza A, PCR Not Detected (NotDetected); Influenza B, PCR Not Detected (NotDetected)
[2020-11-23 22:57] LABS: Basophils # 0.1 K/mm3 (0-0.2); Basophils % 0.7 % (0.1-2.0); Eosinophils # 0.1 K/mm3 (0.0-0.4); Eosinophils % 1.1 % (0.1-12.0); Hematocrit 39.5 % (37.0-47.0); Hemoglobin 13.5 g/dL (12.2-16.2); Lymphocytes # 3.1 K/mm3 (0.7-4.5); Lymphocytes % 25.7 % (10-50); Mean Corpuscular HGB Conc 34.2 g/dL (31.8-35.4); Mean Corpuscular Volume 87.8 fl (81-99); Mean Platelet Volume 7.7 fl (7.4-10.4); Monocytes # 0.3 K/mm3 (0.1-1.0); Monocytes % 2.8 % (1.7-9.3); Neutrophils # 8.3 K/mm3 (1.8-7.8); Neutrophils % 69.6 % (37.0-80.0); Platelet Count 327 K/mm3 (142-424); Red Cell Distribution Width 12.6 % (11.5-17.5)
--- NOTE | 2020-11-23 23:09 | HMH.EDPREG ---
ED Disposition Clinical Impression: Ectopic without intrauterine Qualifiers: Location of ectopic : unspecified location Qualified Code(s): O00.90 - Unspecified ectopic without intrauterine Disposition: Admitted as Observation Condition on Discharge: Good - Critical Care Critical Care Time: No Attestation: On 11/23/20, the high probability of a clinically significant, sudden or life threatening deterioration of the following system(s) required my full and direct attention, intervention and personal management. The time I documented below is in addition to time spent performing reported procedures but includes the following listed in this critical care notation. Medical Decision Making - Medical Records Medical records reviewed: Yes: I reviewed the patient's medical records. - Walker Inquiry Pt receiving controlled substance: No Vital Signs: 11/23/20 22:25 Temperature 98.3 F Temperature Source Oral Pulse Rate [Right Brachial] 76 Respiratory Rate 18 Blood Pressure [Right Arm] 146/94 H Blood Pressure Mean [Right Arm] 111 02 Sat by Pulse Oximetry 100 Oxygen Delivery Method Room Air - Lab Data Lab results reviewed: Yes: I reviewed the patient's lab results. Lab Results 11/23/20 22:27: Urine Color Yellow, Urine Appearance Sl cloudy, Urine pH 5.5, Ur Specific [place] >= 1.030, Urine Protein Negative, Urine Glucose (UA) Negative, Urine Ketones Negative, Urine Blood 3+, Urine Nitrate Negative, Urine Bilirubin Negative, Urine Urobilinogen 0.2, Ur Leukocyte Esterase Negative, Urine WBC 10-20, Ur Squamous Epith Cells 10-20, Other Sediment Comment, Urine Bacteria 4+ 11/23/20 22:49: WBC 12.0 H, RBC 4.50, Hgb 13.5, Hct 39.5, MCV 87.8, MCH 30.0, MCHC 34.2, RDW 12.6, Plt Count 327, MPV 7.7, Neut % (Auto) 69.6, Lymph % (Auto) 25.7, [place] % (Auto) 2.8, Eos % (Auto) 1.1, Baso % (Auto) 0.7, Neut # (Auto) 8.3 H, Lymph # (Auto) 3.1, [place] # (Auto) 0.3, Eos # (Auto) 0.1, Baso # (Auto) 0.1 11/23/20 22:49: HCG, Quant 4415 H 11/23/20 22:49: Sodium 139, Potassium 4.0, Chloride 104, Carbon Dioxide 28, Anion Gap 11.0, BUN 10, Creatinine 0.70, Estimated Creat Clear 166, Estimated GFR 101, Est GFR ( Amer) 122, Glucose 107 H, Calcium 8.8, Total Bilirubin 0.3, AST 25, ALT 27, Alkaline Phosphatase 60, Total Protein 7.2, Albumin 4.2, Globulin 3.0, Albumin/Globulin Ratio 1.4 11/23/20 22:53: SARS-CoV-2 (PCR) Not detected, Influenza A Untype (PCR) Not detected, Influenza Type B (PCR) Not detected Result diagrams: 11/23/20 22:49 11/23/20 22:49 Orders (Tests/Meds): ED MEDICATIONS Generic Name Dose Route Start Last Admin Trade Name Freq PRN Reason Stop Dose Admin Sodium Chloride 1,000 mls @ 999 mls/hr 11/23/20 22:45 11/24/20 00:16 Sod Chlor 0.9% 1000ml Bag IV 11/23/20 23:45 999 mls/hr .[id number] MIKA Administration Discontinued Medications Generic Name Dose Route Start Last Admin Trade Name Freq PRN Reason Stop Dose Admin Ondansetron HCl 4 mg 11/23/20 22:34 11/24/20 00:16 Ondansetron 4mg/2ml Vial IV 11/23/20 22:35 4 mg ONCE ONE Administration ORDERS Category Date Time Status US transvaginal Stat Exams 11/23/20 22:39 Taken Urine Culture Stat Micro 11/23/20 22:27 Received - US Data US Images: Pelvis ED US Reviewed: Yes: I have viewed radiologist's interpretation Findings Narrative: see report - Physician Consults Physician Consulted: jeffery Reason -: Admission Medical Decision Narrative: has known ectopic and has pain with prob bleeding will be admitted at this time HPI - General Chief complaint: OB/Uterine Contractions Stated complaint: 5 wk preg Tubal Preg Time Seen by Provider: 11/23/20 22:45 Mode of Arrival: Ambulatory Source of Information: Patient, Medical Record Limitations: No Limitations Description of Symptoms (Recalled from ER Triage Doc. by RN): Pt presents with severe abdominal cramping and mild bleeding. State
[2020-11-23 23:10] LABS: Chloride 104 mmol/L (98-107); Sodium 139 mmol/L (136-145)
[2020-11-23 23:12] LABS: Alanine Aminotransferase 27 U/L (12-78); Aspartate Amino Transferase 25 U/L (14-36); Blood Urea Nitrogen 10 mg/dl (7-17); Creatinine Clearance Estimated 166 mL/min (50-200); Estimated Glomerular Filt Rate 101 ml/min (>60); GFR (African American) 122 ML/MIN (>60)
[2020-11-23 23:13] LABS: Albumin Level 4.2 g/dl (3.5-5.0); Albumin/Globulin Ratio 1.4 (1.1-1.8); Alkaline Phosphatase 60 U/L (38-126); Bilirubin,Total 0.3 mg/dl (0.2-1.3); Calcium 8.8 mg/dl (8.4-10.2); Carbon Dioxide 28 mmol/L (22.0-30.0); Glucose 107 mg/dl (74-100); Total Protein,Serum 7.2 g/dl (6.3-8.2)
--- NOTE | 2020-11-23 23:27 | PC.NURSE ---
Dr Cole spoke to Dr Larson who wants to admit patient. Pt will have her ultrasound, then be admitted. Bed assignment obtained.
[2020-11-23 23:32] LABS: HCG,Quantitative 4415 mIU/ml (0-5.42)
[2020-11-23 23:32] LABS: Microscopic, Urine URINE MICROSCOPIC (MICROSCOPIC)
[2020-11-23 23:34] LABS: Appearance,Urine SL CLOUDY (Clear); Bilirubin,Urine Negative (Negative); Blood, Urine 3+ (Negative); Color,Urine YELLOW (Yellow); Glucose,Urine (UA) Negative (Negative); Ketones,Urine Negative (Negative); Leukocyte Esterase,Urine Negative (Negative); Nitrate,Urine Negative (Negative); PH,Urine 5.5 (5.0-8.5); Protein,Urine Negative (Negative); Specific Gravity, Urine >= 1.030 (1.005-1.030); Urobilinogen,Urine 0.2 EU/dl (0.2)
[2020-11-23 23:51] LABS: Bacteria,Urine 4+ /lpf
[2020-11-24] VITALS (26 sets, daily range): BP systolic 107–147; BP diastolic 53–96; PULSE 65–98; RESP 16–19; TEMP 36.6–43; O2SAT 94–99
--- NOTE | 2020-11-24 01:15 | PC.NURSE ---
OR Team paged at this time
--- NOTE | 2020-11-24 01:17 | PC.NURSE ---
Shivam in Anesthesia returned call at this time.
--- NOTE | 2020-11-24 01:18 | PC.NURSE ---
Luz Marina from OR returned call at this time.
--- NOTE | 2020-11-24 01:25 | PC.NURSE ---
Guzman Naidu from OR returned call at this time.
[2020-11-24 01:38] LABS: Hematocrit 37.3 % (37.0-47.0); Hemoglobin 12.8 g/dL (12.2-16.2)
--- NOTE | 2020-11-24 01:39 | HMH.ANESCL ---
[facility] Anesthesia Checklist - Patient Identification Patient Identification: Arm Band - Structural Data Admitted From: Emergency Dept Planned Operative Procedure/s: L tubal ligation Consent for Planned Operative Procedure(s) Verified: Yes - NPO Status Verified Time NPO: 21:00 - Airway Assessment C-Spine Mobility Assessed: Yes TMJ Mobility Assessed: Yes Dentition: Good Dentition - Neurological Assessment Level of Consciousness: Awake Hx Seizures: No Numbness or tingling in extremities: No - Anesthesia Plan Anesthesia Risk discussed: Yes Anesthesia Plan: Verified ASA Class: II (E) Anesthesia Type: General [facility] History I have reviewed the patient's past medical history: Yes Medical History: Reports:: Anxiety, Depression Denies:: Cancer, Diabetes Mellitus Type 1, Diabetes Mellitus Type 2, Internal Pacemaker, MRSA *Have you ever received a pneumonia vaccine?: No *Have you received a flu vaccine this season?: No Anesthesia experience/problems:: None Other Surgeries: Yes: Cholecystectomy. No: Pacemaker Amputation: No Fractures: No - *Social History Smoking Status: Current every day smoker Tobacco Type: cigarettes # Packs/Day (cigarettes): 1 Alcohol Intake: never Alcohol Intake Frequency:: holidays/special occasions only Substance Use Type: denies use *Occupational Status:: employed Housing: house Household Members: significant other *Travel in the last 8 weeks: None - Psychiatric History Pschychiatric History:: Reports:: Anxiety, Depression Family Hx:: Cancer, Hypertension, Thyroid Disorder
--- NOTE | 2020-11-24 01:40 | PC.NURSE ---
Dr. Larson s/w pt & her at bedside.
--- NOTE | 2020-11-24 01:47 | PC.NURSE ---
Anesthesia s/w pt at this time
--- NOTE | 2020-11-24 01:54 | HMH.HP ---
*Admission Date: 11/24/20 *Chief complaint: Ectopic , right lower quadrant pain, recent methotrexate administr *History of present illness: She is a 25-year-old 7 para 0 aborta 6 who was recently diagnosed with an ectopic . She has had a previous ectopic with a left salpingectomy. She had methotrexate about 4 days ago and her beta hCGs have continued to rise. Initially was 736 and over the last week it has risen to 4400 today. Her beta hCGs have almost doubled since receiving methotrexate 4 days ago. Ultrasound today showed an ectopic on the right side with a small amount of blood in the cul-de-sac. She was initially doing well in the ER but then began having extreme right-sided pain that was unrelenting. As result of that she is being admitted for pain and possible ruptured ectopic on the right side. [facility] History I have reviewed the patient's past medical history: Yes Medical History: Reports:: Anxiety, Depression Denies:: Cancer, Diabetes Mellitus Type 1, Diabetes Mellitus Type 2, Internal Pacemaker, MRSA, Seizures *Have you ever received a pneumonia vaccine?: No *Have you received a flu vaccine this season?: No Anesthesia experience/problems:: None Other Surgeries: Yes: Cholecystectomy. No: Pacemaker Amputation: No Fractures: No - *Social History Smoking Status: Current every day smoker Tobacco Type: cigarettes # Packs/Day (cigarettes): 1 Alcohol Intake: never Alcohol Intake Frequency:: holidays/special occasions only Substance Use Type: denies use *Occupational Status:: employed Housing: house Household Members: significant other *Travel in the last 8 weeks: None - Psychiatric History Pschychiatric History:: Reports:: Anxiety, Depression Family Hx:: Cancer, Hypertension, Thyroid Disorder Review of Systems - Review of Systems Review of systems:: pertinent systems reviewed and negative unless documented below - *Neurologic Denies localized weakness, Denies seizure-like activity Meds Home Medications Medication Instructions Recorded Confirmed Type Pnv No.95/Ferrous Fum/Folic AC 1 each PO DAILY 11/20/20 11/23/20 History [ Multivitamin Tablet] Allergies Allergy/AdvReac Type Severity Reaction Status Date / Time No Known Allergies Allergy Verified 11/23/20 11:35 Exam Vital signs and Labs for Last 24 Hours: Temp Pulse Resp BP Pulse Ox 98.3 F 76 18 146/94 H 100 11/23/20 22:25 08/09/21 22:25 11/23/20 22:25 11/23/20 22:25 11/23/20 22:25 Laboratory Results - last 24 hr 11/23/20 22:27: Urine Color Yellow, Urine Appearance Sl cloudy, Urine pH 5.5, Ur Specific [place] >= 1.030, Urine Protein Negative, Urine Glucose (UA) Negative, Urine Ketones Negative, Urine Blood 3+, Urine Nitrate Negative, Urine Bilirubin Negative, Urine Urobilinogen 0.2, Ur Leukocyte Esterase Negative, Urine WBC 10-20, Ur Squamous Epith Cells 10-20, Other Sediment Comment, Urine Bacteria 4+ 11/23/20 22:49: WBC 12.0 H, RBC 4.50, Hgb 13.5, Hct 39.5, MCV 87.8, MCH 30.0, MCHC 34.2, RDW 12.6, Plt Count 327, MPV 7.7, Neut % (Auto) 69.6, Lymph % (Auto) 25.7, [place] % (Auto) 2.8, Eos % (Auto) 1.1, Baso % (Auto) 0.7, Neut # (Auto) 8.3 H, Lymph # (Auto) 3.1, [place] # (Auto) 0.3, Eos # (Auto) 0.1, Baso # (Auto) 0.1 11/23/20 22:49: HCG, Quant 4415 H 11/23/20 22:49: Sodium 139, Potassium 4.0, Chloride 104, Carbon Dioxide 28, Anion Gap 11.0, BUN 10, Creatinine 0.70, Estimated Creat Clear 166, Estimated GFR 101, Est GFR ( Amer) 122, Glucose 107 H, Calcium 8.8, Total Bilirubin 0.3, AST 25, ALT 27, Alkaline Phosphatase 60, Total Protein 7.2, Albumin 4.2, Globulin 3.0, Albumin/Globulin Ratio 1.4 11/23/20 22:53: SARS-CoV-2 (PCR) Not detected, Influenza A Untype (PCR) Not detected, Influenza Type B (PCR) Not detected 11/24/20 01:19: Hgb 12.8, Hct 37.3 I & O for Last 24 hours: Intake & Output 11/21/20 11/22/20 11/23/20 11/24/20 11:59 11:59 11:59 11:59 Weight 190 lb - Const
--- NOTE | 2020-11-24 03:34 | HMH.OPNOTE ---
Date of procedure: 11/24/20 Pre-op Diagnosis:: Right ectopic , right lower quadrant pain. Possible ruptured ectopic Post-op Diagnosis:: Right lower quadrant pain, right ectopic , bleeding ectopic Procedure performed:: Laparoscopic right salpingostomy Surgeon:: Javier Larson MD [employer] OPERATOR:: Yoana Elder Anesthesia: GETA Estimated blood loss (mL): 25 Clinical Note:: She is a 25-year-old 7 para 0 aborta 6 who is had a previous ectopic on the left side with salpingectomy. She has been followed over the last week with right lower quadrant pain and increasing beta hCGs. There was no intrauterine . An ectopic was diagnosed and she did receive methotrexate. This evening she came into the ER with severe right-sided pain. This eased somewhat and then started with more pain again on the right side. Ultrasound showed some fluid in the cul-de-sac thought to be blood. As result of that she was offered diagnostic laparoscopy with possible right salpingectomy or salpingostomy. Operative findings:: She had an enlarged swollen right tube consistent with an ectopic . The cul-de-sac had approximately 200 cc of blood and clot. The tube was intact so I elected to perform a salpingostomy rather than salpingectomy. Rest of the abdominal cavity looked normal there were what appeared to be some areas of endometriosis on the right ovary. There were adhesions along the left ovary possibly from her past ectopic . The appendix was seen and appeared normal. It was somewhat stiff when I moved it. There was no evidence of appendicitis though. Operative note:: She was taken the operating room where general anesthesia was found be adequate. She was prepped regular sterile fashion a semilithotomy position. Weighted speculum is placed in the vagina and the anterior lip of the cervix was grasped with a tenaculum. Lee dilators used to dilate the cervix approximately 4 mm. We then inserted a Abbey uterine manipulator into the uterine cavity and insufflated the balloon. I changed gloves and then injected 10 cc of ropivacaine around the umbilicus. I made a small incision within the umbilicus and inserted Veress needle into the abdominal cavity. I attempted 3 times to insufflate the abdominal cavity but it did not feel like I was getting into the abdominal cavity correctly. I then elected to do a direct entry with a 5 mm trocar. This was easily done. Upon entering the abdominal cavity there was approximately 200 cc of blood in the cul-de-sac and around the right tube and ovary. The right tube was severely swollen consistent with an ectopic . I then injected through and through the pubic hairline with ropivacaine and made a small incision. I inserted an 11 mm trocar under direct vision. I then inserted a 5 mm trocar in the left lower quadrant after going lateral to the inferior epigastric arteries and injecting through and through with ropivacaine. After rinsing the pelvis well and the right adnexa I then grasped the right tube. I made a small plunge incision with harmonic scalpel into the tube and cut along the tube with harmonic scalpel. Blood and clot drained from the right tube. I did not see the ectopic itself. It was just mostly formed clot and fresh blood. The tube was then rinsed with saline and I elected to place a piece of Surgicel into the cavity where I opened it up. I then wrapped the entire tube with Interceed. After once again I am sure and hemostasis we then rinsed the pelvis once again with saline. I then injected approximately 25 cc of ropivacaine into the pelvis. Secondary trochars removed under direct vision. The gas was over the abdomen and remove the primary trocar. The 5 mm trocar sites were closed with subcuticular 4-0 Monocryl suture. The 11 mm trocar site was first closed deeply with [id number] 2-0 Vicryl suture followed by running subcuti
--- NOTE | 2020-11-24 03:48 | P.PN_ITS ---
[facility] Anesthesia Record Part I Intake, IV Amount: 1,000 Estimated blood loss (mL): 200 Urine output (mL): 0 Blood Pressure: 129/82 SaO2: 98 Pulse Rate: 88 Respiratory Rate: 19 Temperature: 98.1 F Patient is:: Drowsy, Oral/Nasal airway Stable to PACU at:: 15:45
--- NOTE | 2020-11-24 04:10 | PC.NURSE ---
Guzman DODSON RECEIVED REPORT FROM PACU AT THIS TIME.
[2020-11-24 06:00] LABS: Basophils % 0.2 % (0.1-2.0); Eosinophils % 0.1 % (0.1-12.0); Hematocrit 37.5 % (37.0-47.0); Hemoglobin 12.7 g/dL (12.2-16.2); Lymphocytes # 0.8 K/mm3 (0.7-4.5); Mean Corpuscular HGB Conc 33.9 g/dL (31.8-35.4); Mean Corpuscular Volume 88.6 fl (81-99); Monocytes # 0.1 K/mm3 (0.1-1.0); Monocytes % 0.9 % (1.7-9.3); Neutrophils # 14.2 K/mm3 (1.8-7.8); Neutrophils % 93.8 % (37.0-80.0); Platelet Count 294 K/mm3 (142-424); Red Blood Count 4.24 M/mm3 (4.20-5.40); Red Cell Distribution Width 12.6 % (11.5-17.5); White Blood Count 15.2 K/mm3 (4.8-10.8)
[2020-11-24 06:01] LABS: MANUAL DIFFERENTIAL MANUAL DIFFERENTIAL (MANUAL DIFF)
[2020-11-24 06:04] LABS: Chloride 105 mmol/L (98-107)
[2020-11-24 06:05] LABS: Potassium 4.5 mmoL/L (3.5-5.1); Sodium 137 mmol/L (136-145)
[2020-11-24 06:07] LABS: Blood Urea Nitrogen 8 mg/dl (7-17); Creatinine Clearance Estimated 193 mL/min (50-200); Estimated Glomerular Filt Rate 121 ml/min (>60); GFR (African American) 146 ML/MIN (>60)
[2020-11-24 06:08] LABS: Calcium 8.4 mg/dl (8.4-10.2); Glucose 119 mg/dl (74-100)
--- NOTE | 2020-11-24 07:09 | PC.NURSE ---
REPORT TO Michele ALMARAZ RN
--- NOTE | 2020-11-24 07:18 | HMH.ANESII ---
[facility] Anesthesia Record Part II Discharge Time: 04:25 Destination: Obstetric PACU nurse assessment reviewed?: Yes Patient Condition:: Good Anesthesia Complications:: None Swallowing reflex intact?: Yes Cyanosis?: No Blood Pressure: 147/86 Pulse Rate: 93 Temperature: 98.1 F Mental Status: Alert & Oriented Pain level:: 7 Nausea and/or vomitting:: None Intake, IV Amount: 0
[2020-11-24 08:03] LABS: Lymphocytes % 2 % (10-50); Monocytes % 1 % (2-9); Neutrophils % 97 % (42-76); Platelet Estimate Normal; RBC Morphology Normal; Total Cells Counted 100
--- NOTE | 2020-11-24 10:15 | PC.NURSE ---
1010 IV S/L and IPCS removed. Assisted pt with ambulating to BR to void and dress in her clothes in preparation for discharge. Pt tolerated activity well.
--- NOTE | 2020-11-24 11:43 | P.CONPHA_ITS ---
[facility] VTE Monitoring - Patient Demographics Admission date: 11/23/20 Report Date: 11/24/20 Time: 11:43 Allergies/Adverse Reactions: Patient Allergies No Known Allergies Allergy (Verified 11/23/20 11:35) Height: 1.6 m Weight: 86.183 kg Patient Problems: Current Active Problems Ectopic without intrauterine (Acute) History of recurrent miscarriages (Acute) Ectopic (Acute) - VTE Risk Labs: VTE Related Lab Results Hgb 12.7 g/dL (12.2-16.2) 11/24/20 05:22 Hct 37.5 % (37.0-47.0) 11/24/20 05:22 Plt Count 294 K/mm3 (142-424) 11/24/20 05:22 BUN 8 mg/dl (7-17) 11/24/20 05:22 Creatinine 0.60 mg/dl (0.52-1.04) 11/24/20 05:22 Estimated Creat Clear 193 mL/min (50-200) 11/24/20 05:22 Was VTE Risk Assessment Performed: Yes VTE Score: 2 VTE Risk Level: Very Low Risk - Prophylaxis VTE Prophylaxis Ordered?: Yes Types of VTE Prophylaxis: IPCS Thigh High Location of Applied Device: Bilateral Lower Extremeties
--- NOTE | 2020-11-24 12:52 | HMH.DCSUM ---
General - General Admission date:: 11/24/20 Discharge date: 11/24/20 HPI HPI: She is a 25-year-old 8 P0170 (1 IUFD, 2 ectopic, 5 SAB) who was recently diagnosed with an ectopic . She has had a previous ectopic with a left salpingectomy. She had methotrexate about 4 days ago, with follow up per protocol with HCG on day 4 & 7. HCG increased between day 1 and day 4, which is common during methotrexate treatment, and plan was to give a second dose of MTX if there was not a 15% decrease in HCG between day 4 and day 7, however she presented with acute onset of abd pain on the evening of day 4. Ultrasound today showed an ectopic on the right side with a small amount of blood in the cul-de-sac. She was initially doing well in the ER but then began having extreme right-sided pain that was unrelenting. As result of that she was being admitted for pain and possible ruptured ectopic on the right side. Hospital Course Hospital Course: she was taken to the OR to assess the status of the right ectopic approximately 200cc hemoperitoneum was visualized along with a dilated right fallopian tube a linear salpingostomy was performed She is recovering well with good pain management with oral narcotics She is discharged home on POD #0 she will have follow up hcg level drawn on day 7, as planned with methotrexate therapy she will follow up in the office after having labs drawn Objective Vital signs: Temp Pulse Resp BP Pulse Ox 97.9 F 81 18 107/53 L 97 11/24/20 11:35 11/24/20 11:35 11/24/20 11:35 11/24/20 11:35 11/24/20 11:35 Narrative: CONSTITUTIONAL: no acute distress HEENT: mucous membranes moist PULMONARY: breathing unlabored without audible wheezes CV: no tachycardia or visible JVD; normal LE peripheral pulses ABD: soft, ND; appropriately tender but no rebound/guarding SKIN: abd dressings dry EXT: no edema LEs NEURO: alert/oriented, no altered mental status PSYCH: appropriate mood and demeanor Results Labs on day of discharge: Labs from last 24 hours 11/24/20 11/24/20 11/24/20 05:22 05:22 01:19 WBC 15.2 H D RBC 4.24 Hgb 12.7 12.8 Hct 37.5 37.3 MCV 88.6 MCH 30.0 MCHC 33.9 RDW 12.6 Plt Count 294 MPV 8.0 Neut % (Auto) 93.8 H Lymph % (Auto) 5.0 L [place] % (Auto) 0.9 L Eos % (Auto) 0.1 Baso % (Auto) 0.2 Neut # (Auto) 14.2 H Lymph # (Auto) 0.8 [place] # (Auto) 0.1 Eos # (Auto) 0.0 Baso # (Auto) 0.0 Total Counted 100 Neutrophils % (Manual) 97 H Lymphocytes % (Manual) 2 L Monocytes % (Manual) 1 L Platelet Estimate Normal RBC Morphology Normal Sodium 137 Potassium 4.5 Chloride 105 Carbon Dioxide 26 Anion Gap BUN 8 Creatinine 0.60 Estimated Creat Clear 193 Estimated GFR 121 Est GFR ( Amer) 146 Glucose 119 H Calcium 8.4 Total Bilirubin AST ALT Alkaline Phosphatase Total Protein Albumin Globulin Albumin/Globulin Ratio HCG, Quant Urine Color Urine Appearance Urine pH Ur Specific [place] Urine Protein Urine Glucose (UA) Urine Ketones Urine Blood Urine Nitrate Urine Bilirubin Urine Urobilinogen Ur Leukocyte Esterase Urine WBC Ur Squamous Epith Cells Other Sediment Urine Bacteria SARS-CoV-2 (PCR) Influenza A Untype (PCR) Influenza Type B (PCR) 11/23/20 11/23/20 11/23/20 22:53 22:49 22:49 WBC RBC Hgb Hct MCV MCH MCHC RDW Plt Count MPV Neut % (Auto) Lymph % (Auto) [place] % (Auto) Eos % (Auto) Baso % (Auto) Neut # (Auto) Lymph # (Auto) [place] # (Auto) Eos # (Auto) Baso # (Auto) Total Counted Neutrophils % (Manual) Lymphocytes % (Manual) Monocytes % (Manual) Platelet Estimate RBC Morphology Sodium 139 Potassium 4.0 C
--- NOTE | 2020-11-24 14:33 | PC.NURSE ---
[id number] Discharge education completed with pt and her s/o. Incisions cleaned with 1/2 strength hydrogen peroxide and sterile water and then covered with bandaids. No s/s infection noted. Pt educated on incision care and surgical site infections, v/u.
[2020-11-24 15:01] LABS: Anion Gap 10.5 mEq/L (5-15)
[2020-11-24 15:02] LABS: Carbon Dioxide 26 mmol/L (22.0-30.0)
== END 2020-11-24 14:02 | disposition home or self-care (01) ==
LOC: ER 22:09 → OB 11-24 00:21
PROVIDERS: Admitting Provider Nurse Practitioner Obstetrics & Gynecology; Emergency Provider Emergency Medicine; PCP Physician Assistant; Visit Provider Obstetrics & Gynecology
PROC: (CPT 58700; principal; 2020-11-24 14:30)
DX: O00.90 Unspecified ectopic pregnancy without intrauterine pregnancy (principal); F17.210 Nicotine dependence, cigarettes, uncomplicated; N96 Recurrent pregnancy loss; Z20.822 Contact with and (suspected) exposure to COVID-19
CPT/HCPCS: 59150; 36415; 76830; 80048; 80053; 81001; 84702; 85007; 85014; 85018; 85025; 87086; 87088; 87186; 88305; 96365; 96375; 99281; G0378; J0131; J2405; U0003

== ENCOUNTER → 2020-11-26 10:01 | Outpatient (CLI) | payer OTHER, SELFPAY ==
[2020-11-26 11:29] LABS: HCG,Quantitative 620 mIU/ml (0-5.42)
== END ==
PROVIDERS: Visit Provider Obstetrics & Gynecology
DX: O00.90 Unspecified ectopic pregnancy without intrauterine pregnancy (principal)
CPT/HCPCS: 36415; 84702

== ENCOUNTER → 2020-12-03 09:30 | Outpatient (CLI) | payer OTHER, SELFPAY ==
[2020-12-03 11:33] LABS: HCG,Quantitative 39 mIU/ml (0-5.42)
== END ==
PROVIDERS: Visit Provider Obstetrics & Gynecology
DX: O00.90 Unspecified ectopic pregnancy without intrauterine pregnancy (principal)
CPT/HCPCS: 36415; 84702

== ENCOUNTER 2021-02-22 17:47 | Emergency (ER) | payer OTHER, SELFPAY ==
[2021-02-22 18:40] VITALS: BP 149/88; PULSE 91; RESP 19; TEMP 37.5; O2SAT 100; BMI 34.5
[2021-02-22 18:59] LABS: UTC Strep Screen (Rapid) Negative (Negative)
--- NOTE | 2021-02-22 19:27 | HMH.EDUTC ---
[facility] [place] Disposition Clinical Impression: Viral upper respiratory infection Disposition: Home, Self-Care Condition on Discharge: Good Instructions: DI for Viral Upper Respiratory Infection -- Adult, Sore Throat Additional Instructions: *Monitor Temp, Over the counter Motrin or Tylenol as directed/as needed Tylenol every 4 hours and Motrin every 6 hours (as long as your family doctor has told you that you can take it) for fever or pain. and straight to ER if unable to lower temp less than 101.0 after medication given *Warm salt water gargles may help to soothe the throat *Throat Lozenges *Warm fluids like tea with honey may help to soothe the throat *Sleep elevated *Humidifier/Vaporizer Your throat swab was sent for culture. Those results are typically sent to your primary care. Be sure to follow up in 2-3 days with your family doctor/primary care physician if no improvement so they can review those result and treat if necessary. If you don?t have a primary care doctor, I recommend you get one but in the mean time, you will have to return to a walk in clinic Follow up IMMEDIATELY for new or worsening symptoms or no Noticeable improvement over the next 48-72 hours. 911 for difficulty breathing or swallowing You were tested for today for COVID19 your test result should be back in the next 24-48 hours, you may check your results on the [facility] My health portal if you have trouble logging on or seeing your results you may call You was given a handout with instructions for Self Quarantine and Self isolation for while you wait on test results and what to do if they are positive If you are positive the Health Dept will be contacting you also Make sure to take your Vitamins Vit. C Vit D and Zinc if you can take them Referrals: Nereida Browning PA [Primary Care Provider] - As needed Forms: Work/School Release Time of Disposition: 19:34 Medical Decision Making - Walker Inquiry Pt receiving controlled substance: No Walker was queried for this patient: No Vital Signs: 02/22/21 18:40 Temperature 99.5 F Temperature Source Oral Pulse Rate [Left Brachial] 91 H Respiratory Rate 19 Blood Pressure [Left Arm] 149/88 H Blood Pressure Mean [Left Arm] 108 Blood Pressure Source [Left Arm] Automatic Cuff Blood Pressure Position [Left Arm] Sitting 02 Sat by Pulse Oximetry 100 Oxygen Delivery Method Room Air - Lab Data Lab results reviewed: Yes: I reviewed the patient's lab results. Lab Results 02/22/21 18:53: Strep Scn Rapid Clinic Negative Orders (Tests/Meds): ORDERS Category Date Time Status Covid-19 Nasal PCR ([facility]) Routine Lab 02/22/21 18:45 Received Strep Screen Confirmation Stat Micro 02/22/21 18:53 Received [facility] UTC HPI - General Stated complaint: sore throat, congestion, headache Time Seen by Provider: 02/22/21 19:27 Mode of Arrival: Ambulatory Source of Information: Patient Limitations: No Limitations Description of Symptoms (Recalled from Triage Doc. by RN): PATIENT C/O SORE THROAT AND CONGESTION SINCE MONDAY HEENT Symptoms (Recalled from RN notes): Yes Resp Symptoms (Recalled from RN notes): No Skin Symptoms (Recalled from RN notes): No MS Symptoms (Recalled from RN notes): No Functional Status (Recalled from RN notes): WNL - History of Present Illness Provider Complaint: Patient states that she has been having sore throat for several days that has got worse States that her throat is sore and scratchy and she was worried that she may have strep throat States that she works in a [employer] and not sure if she may have been exposed to COVID or not so she came in - Related Data Previous Rx's Medication Instructions Recorded escitalopram oxalate 20 mg tablet 20 mg PO QDAY 30 Days #30 tab 01/07/21 phentermine 37.5 mg tablet 37.5 mg PO DAILY #30 tab 01/13/21 Allergies Allergy/AdvReac Type Severity Reaction Status Date / Time No Known Allergies Allergy Verified 01/07/21 09:01 - Worke
[2021-02-22 19:36] VITALS: BP 149/88; PULSE 91; RESP 19; TEMP 37.5; O2SAT 100
== END 2021-02-22 19:41 | disposition home or self-care (01) ==
PROVIDERS: Emergency Provider Nurse Practitioner; PCP Physician Assistant
DX: J06.9 Acute upper respiratory infection, unspecified (principal); F41.8 Other specified anxiety disorders; Z20.822 Contact with and (suspected) exposure to COVID-19; Z87.891 Personal history of nicotine dependence
CPT/HCPCS: 87880; 99203; C9803; G0463; U0003; U0005

== ENCOUNTER 2021-11-02 15:07 | Emergency (ER) | payer OTHER, SELFPAY ==
[2021-11-02 15:15] VITALS: BP 144/72; PULSE 94; RESP 18; TEMP 36.7; O2SAT 98; BMI 29.6
--- NOTE | 2021-11-02 15:40 | HMH.EDUTC ---
[facility] [place] Disposition Clinical Impression: Injury of toenail of left foot Qualifiers: Encounter type: initial encounter Qualified Code(s): S99.922A - Unspecified injury of left foot, initial encounter Disposition: Home, Self-Care Condition on Discharge: Good Instructions: DI for Nail Bed Injury Additional Instructions: Clean area well with antibacterial soap and water and apply topical medication and bandage as advised Follow up with Podiatry if you notice your nail is lifting up, not growing,worsening of pain, swelling or redness or if nail appears to be coming off Follow up with your Family Doctor if needed Make sure to trim back corner of nail to keep it from snagging on clothing or socks Over the counter Motrin and or Tylenol may help with pain and discomfort Prescriptions: Bacitracin [Bacitracin Oint 0.9GM UDP] 1 each TP TID 10 Days #30 packet Transmission Status: Pending to [id number] Referrals: Nereida Browning PA [Primary Care Provider] - As needed Ese Lucio DPM [Staff Physician] - As needed (Call and make appointment if nail starts to lift, come off or does not grow ) Forms: Work/School Release Time of Disposition: 15:52 Medical Decision Making - Walker Inquiry Pt receiving controlled substance: No Walker was queried for this patient: No Vital Signs: 11/02/21 15:15 Temperature 98.0 F Temperature Source Oral Pulse Rate [Left Brachial] 94 H Respiratory Rate 18 Blood Pressure [Left Arm] 144/72 H Blood Pressure Mean [Left Arm] 96 Blood Pressure Source [Left Arm] Automatic Cuff Blood Pressure Position [Left Arm] Sitting 02 Sat by Pulse Oximetry 98 Oxygen Delivery Method Room Air Medical Decision Narrative: Patient not wanting to have nail removed at this time, toenail nonmoveable at this time however does have dried blood noted under nail and on outside of nail, area cleaned well with [place] Spoke with Brea from Podiatry and discussed patient and will clean well, apply neosporin and nonstick bandage and watch Patient educated to continued to trim nail back to prevent getting snagged on clothing and if nail starts moving or coming off along with not growing her to follow up with Podiatry for further treatment Patient educated that sometimes if you damage your nail there is always a chance it may or may not grow back Patient agreed and wanting to watch and wait and she will return if needed [facility] [place] HPI - General Stated complaint: AO 11/02 left foot big toe nail Time Seen by Provider: 11/02/21 15:20 Mode of Arrival: Ambulatory Source of Information: Patient Limitations: No Limitations Description of Symptoms (Recalled from Triage Doc. by RN): PATIENT STATES SHE WAS MOVING A BOX TODAY AND HIT HER LEFT BIG TOENAIL HEENT Symptoms (Recalled from RN notes): No Resp Symptoms (Recalled from RN notes): No Skin Symptoms (Recalled from RN notes): Yes MS Symptoms (Recalled from RN notes): No Functional Status (Recalled from RN notes): WNL - History of Present Illness Provider Complaint: Patient states that she was moving a box when the corner of the box caught the corner of her left great toenail and she felt pain in her toe States that she noticed it was bleeding so she cleaned it up and came in to get it checked - Related Data Previous Rx's Medication Instructions Recorded ergocalciferol (vitamin D2) 1,250 50,000 unit PO QWEEK #14 cap 06/22/21 mcg (50,000 unit) capsule escitalopram oxalate 20 mg tablet 20 mg PO DAILY #90 tab 06/22/21 phentermine 37.5 mg tablet 37.5 mg PO DAILY #30 tab 09/14/21 Bacitracin [Bacitracin Oint 0.9GM 1 each TP TID 10 Days #30 packet 11/02/21 UDP] Allergies Allergy/AdvReac Type Severity Reaction Status Date / Time No Known Allergies Allergy Verified 09/14/21 11:41 - Worker's Comp Is this a Worker's Comp case?: No [facility] History - Hepatitis A Screen Attestation statement:: This patient has been screened for Hepatitis A risk factors. I sandhu
[2021-11-02 15:51] VITALS: BP 144/72; PULSE 94; RESP 18; TEMP 36.7; O2SAT 98
== END 2021-11-02 15:55 | disposition home or self-care (01) ==
PROVIDERS: Emergency Provider Nurse Practitioner; PCP Physician Assistant
DX: S99.922A Unspecified injury of left foot, initial encounter (principal); S97.112A Crushing injury of left great toe, initial encounter; W20.8XXA Other cause of strike by thrown, projected or falling object, initial encounter

== ENCOUNTER → 2023-01-30 10:05 | Outpatient (CLI) | payer OTHER, SELFPAY ==
[2023-01-30 11:39] LABS: HCG,Quantitative 52 mIU/ml (0-5.42)
[2023-01-31 09:44] LABS: Progesterone 0.3 ng/mL (.)
== END ==
PROVIDERS: PCP Physician Assistant; Visit Provider Obstetrics & Gynecology
DX: Z34.91 Encounter for supervision of normal pregnancy, unspecified, first trimester (principal)
CPT/HCPCS: 84144; 84702

== ENCOUNTER → 2023-02-01 11:59 | Outpatient (CLI) | payer OTHER, SELFPAY ==
[2023-02-01 14:17] LABS: HCG,Quantitative 23 mIU/ml (0-5.42)
== END ==
PROVIDERS: PCP Physician Assistant; Visit Provider Obstetrics & Gynecology
DX: Z32.00 Encounter for pregnancy test, result unknown (principal)
CPT/HCPCS: 36415; 84702

== ENCOUNTER 2023-05-01 12:51 | Outpatient (CLI) | payer OTHER, SELFPAY ==
[2023-05-01 14:37] LABS: Barbiturates Screen,Urine Negative ng/ml (<200)
[2023-05-01 14:38] LABS: Cannabinoid Screen,Urine Positive ng/ml (<50)
[2023-05-01 14:41] LABS: Opiate Screen,Urine Negative ng/ml (<300)
[2023-05-01 14:42] LABS: Phencyclidine Screen,Urine Negative ng/ml (<25)
[2023-05-01 14:53] LABS: Amphetamine/Metha Screen,Urine Positive ng/ml (<1000)
[2023-05-01 14:54] LABS: Benzodiazepines Screen,Urine Negative ng/ml (<200); Cocaine Screen,Urine Negative ng/ml (<300)
[2023-05-01 14:55] LABS: Methadone Screen,Urine Negative ng/ml (<300)
== END 2023-05-01 23:59 ==
LOC: LAB.DROPOF 12:51
PROVIDERS: PCP Physician Assistant; Visit Provider Physician Assistant
DX: Z79.899 Other long term (current) drug therapy (principal)
CPT/HCPCS: 80307